=== PATIENT | female | born 1940 | race African-American/Black ===

== ENCOUNTER 2018-12-13 16:44 | Observation (INO) ==
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
[2018-12-13 18:49] LABS: EOSINOPHILS # (AUTO) 0.1 x10^3/uL (0.0-0.2); EOSINOPHILS % (AUTO) 3.4 % (0.9-2.9); HEMATOCRIT 40.4 % (36.0-47.0); HEMOGLOBIN 13.7 g/dL (12.0-16.0); LYMPHOCYTES # (AUTO) 1.1 X10^3/uL (1.3-2.9); LYMPHOCYTES % (AUTO) 33.6 % (21.0-51.0); MEAN CORPUSCULAR HEMOGLOBIN 29.6 pg (27.0-34.0); MEAN CORPUSCULAR HGB CONC 33.9 g/dL (33.0-35.0); MEAN CORPUSCULAR VOLUME 87.4 fL (80.0-100.0); MEAN PLATELET VOLUME 8.1 fL (7.4-11.0); MONOCYTES # (AUTO) 0.4 x10^3/uL (0.3-0.8); MONOCYTES % (AUTO) 10.4 % (0.0-13.0); NEUTROPHILS # (AUTO) 1.8 x10^3/uL (2.2-4.8); NEUTROPHILS % (AUTO) 51.6 % (42.0-75.0); PLATELET COUNT 116 X10^3/uL (150.0-450.0); RED BLOOD COUNT 4.62 X10^6/uL (3.5-5.4); RED CELL DISTRIBUTION WIDTH 14.4 % (11.6-16.5); WHITE BLOOD COUNT 3.4 X10^3/uL (3.6-10.0)
[2018-12-13 19:10] LABS: BLOOD UREA NITROGEN 7 mg/dL (7-18); CALCIUM 9.3 mg/dL (8.5-10.1); CHLORIDE 106 mmol/L (98-107); SODIUM 142 mmol/L (136-145); TROPONIN I < 0.02 ng/mL (0-1.5); eGFR NON BLACK RACES > 60 (>60)
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
[2018-12-13 19:33] LABS: ALANINE AMINOTRANSFERASE 20 Units/L (12-78); ALBUMIN 3.8 g/dL (3.4-5.0); ALKALINE PHOSPHATASE 111 Units/L (46-116); ASPARTATE AMINO TRANSFERASE 22 Units/L (15-37); CREATINE KINASE 220 Units/L (26-192); TOTAL PROTEIN 7.9 g/dL (6.4-8.2)
[2018-12-13 19:45] LABS: CREATINE KINASE MB 8.7 ng/mL (0-4.0)
[2018-12-13] MEDS ORDERED: TORADOL 30 MG VIAL IVP STA (19:56)
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
[2018-12-13] MEDS ORDERED: MORPHINE SULFATE INJ 2 MG INJ IVP ONE (20:01)
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
[2018-12-13] MEDS ORDERED: NITRO-BID OINT 2% Multi-Dose tube TD ONE (20:24)
[2018-12-13 21:51] LABS: CKMB % 4.3 % (<4); CREATINE KINASE 252 Units/L (26-192); TROPONIN I < 0.02 ng/mL (0-1.5)
[2018-12-13 21:54] LABS: CREATINE KINASE MB 10.9 ng/mL (0-4.0)
[2018-12-14 01:37] VITALS: BMI 21.2
[2018-12-14] MEDS: MORPHINE SULFATE INJ 2 MG INJ IVP PRN ×2 (05:23→07:59)
[2018-12-14 05:24] LABS: BASOPHILS # (AUTO) 0.1 X10^3/uL (0.0-0.1); BASOPHILS % (AUTO) 1.2 % (0.2-1.0); EOSINOPHILS # (AUTO) 0.1 x10^3/uL (0.0-0.2); EOSINOPHILS % (AUTO) 3.2 % (0.9-2.9); HEMATOCRIT 37.3 % (36.0-47.0); HEMOGLOBIN 12.6 g/dL (12.0-16.0); LYMPHOCYTES # (AUTO) 1.1 X10^3/uL (1.3-2.9); LYMPHOCYTES % (AUTO) 27.2 % (21.0-51.0); MEAN CORPUSCULAR HEMOGLOBIN 29.5 pg (27.0-34.0); MEAN CORPUSCULAR HGB CONC 33.7 g/dL (33.0-35.0); MEAN CORPUSCULAR VOLUME 87.5 fL (80.0-100.0); MEAN PLATELET VOLUME 8.7 fL (7.4-11.0); MONOCYTES # (AUTO) 0.4 x10^3/uL (0.3-0.8); MONOCYTES % (AUTO) 9.5 % (0.0-13.0); NEUTROPHILS # (AUTO) 2.5 x10^3/uL (2.2-4.8); NEUTROPHILS % (AUTO) 58.9 % (42.0-75.0); PLATELET COUNT 99 X10^3/uL (150.0-450.0); RED BLOOD COUNT 4.26 X10^6/uL (3.5-5.4); WHITE BLOOD COUNT 4.2 X10^3/uL (3.6-10.0)
[2018-12-14 05:58] LABS: ALANINE AMINOTRANSFERASE 19 Units/L (12-78); ALBUMIN 3.2 g/dL (3.4-5.0); ALKALINE PHOSPHATASE 97 Units/L (46-116); ASPARTATE AMINO TRANSFERASE 21 Units/L (15-37); BLOOD UREA NITROGEN 7 mg/dL (7-18); CALCIUM 8.9 mg/dL (8.5-10.1); CARBON DIOXIDE 25.3 mmol/L (21-32); CHLORIDE 105 mmol/L (98-107); CHOL/HDL RATIO 3.6 (0.0-5.0); CHOLESTEROL 165 mg/dL (0-200); CKMB % 2.6 % (<4); COR CA(FOR HYPOALB) 9.5 mg/dL (8.5-10.1); CREATINE KINASE 249 Units/L (26-192); CREATININE 0.79 mg/dL (0.55-1.02); HDL CHOLESTEROL 46 mg/dL (40-60); SODIUM 141 mmol/L (136-145); TOTAL PROTEIN 6.8 g/dL (6.4-8.2); TRIGLYCERIDES 78 mg/dL (0-150); TROPONIN I < 0.02 ng/mL (0-1.5); eGFR NON BLACK RACES > 60 (>60)
[2018-12-14 06:03] LABS: CREATINE KINASE MB 6.5 ng/mL (0-4.0)
[2018-12-14] MEDS ORDERED: MICRO K EXTEN CAP 10 MEQ PO PRN (07:10)
[2018-12-14] MEDS ORDERED: KLOR-CON PO PRN (07:10)
[2018-12-14] MEDS ORDERED: POTASSIUM CHL 60 MEQ/NS 0.45% 500 ML IV PRN (07:10)
[2018-12-14] MEDS ORDERED: POTASSIUM CHLORIDE LIQ 20 MEQ UDC PO PRN (07:10)
[2018-12-14] MEDS ORDERED: K-RIDER 10 MEQ/NS 100 ML 10 MEQ/100 ML BAG IV PRN (07:10)
[2018-12-14] MEDS ORDERED: POTASSIUM CHL 40 MEQ/NS 0.45% 500 ML IV PRN (07:10)
[2018-12-14] MEDS ORDERED: K-DUR TAB 20 MEQ PO PRN (07:10)
[2018-12-14] MEDS ORDERED: TYLENOL 325 MG TAB PO PRN (08:41)
[2018-12-14] MEDS ORDERED: ULTRAM PO PRN (08:45)
[2018-12-14] MEDS ORDERED: LOVENOX INJ 40 MG SYR SC SCH (09:00)
[2018-12-14] MEDS ORDERED: PROTONIX INJ 40 MG VIAL IVP SCH (09:00)
[2018-12-14] MEDS ORDERED: TORADOL 30 MG VIAL IVP PRN (09:30)
[2018-12-14 10:59] LABS: CKMB % 1.8 % (<4); CREATINE KINASE 246 Units/L (26-192); TROPONIN I < 0.02 ng/mL (0-1.5)
[2018-12-14 11:03] LABS: CREATINE KINASE MB 4.4 ng/mL (0-4.0)
[2018-12-14 15:47] VITALS: BP 110/56
== END 2018-12-14 13:15 | disposition home or self-care (01) ==
LOC: ER 16:45 → MED/SURG 16:45
PROVIDERS: ADMIT Internal Medicine; ATTEND Internal Medicine
DX: R51 Headache; V89.2XXA Person injured in unspecified motor-vehicle accident, traffic, initial encounter; M54.5 Low back pain; Y92.9 Unspecified place or not applicable; R07.89 Other chest pain
CPT/HCPCS: 36415; 70450; 71010; 71045; 72125; 80053; 80061; 82550; 82553; 83735; 84484; 85025; 85610; 85730; 93005; 94760; 96365; 96372; 96374; 99284; A4216; A4222; C9113; G0378; J1650; J2270